=== PATIENT | female | born 1995 | race Caucasian/White ===

== ENCOUNTER 2017-04-21 19:50 | Emergency (ER) | payer SELFPAY ==
[~2017-04-21] VITALS: Ht 162.6 cm; Wt 45.4 kg
[2017-04-21 20:01] VITALS: BP 114/72
--- NOTE | 2017-04-21 21:31 | NUR ---
INFORMED BY ADMITTING "PT LEFT"
== END 2017-04-21 21:32 | disposition left against medical advice (07) ==
LOC: ER 19:54
DX: Z53.21 Procedure and treatment not carried out due to patient leaving prior to being seen by health care provider (principal)
CPT/HCPCS: A4606; Z7610